=== PATIENT | female | born 1995 | race American Indian/Alaskan Native ===

== ENCOUNTER 2021-08-27 11:30 | Emergency (ER) | payer OTHER, MEDICAID ==
[2021-08-27 12:35] VITALS: BP 124/85
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
== END 2021-08-28 02:23 | disposition home or self-care (01) ==
LOC: ED 11:30
DX: S39.012A Strain of muscle, fascia and tendon of lower back, initial encounter (principal); S76.812A Strain of other specified muscles, fascia and tendons at thigh level, left thigh, initial encounter; S46.812A Strain of other muscles, fascia and tendons at shoulder and upper arm level, left arm, initial encounter; Z79.899 Other long term (current) drug therapy; V89.2XXA Person injured in unspecified motor-vehicle accident, traffic, initial encounter; Y93.89 Activity, other specified; Y92.488 Other paved roadways as the place of occurrence of the external cause; Y99.8 Other external cause status
CPT/HCPCS: 99282